=== PATIENT | male | born 2000 | race Caucasian/White ===

== ENCOUNTER 2020-05-24 14:23 | Emergency (ER) | payer OTHER, SELFPAY ==
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
[2020-05-24 14:27] VITALS: BP 140/65; PULSE 61; RESP 16; TEMP 36.7; O2SAT 98
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
[2020-05-24] MEDS: IBUPROFEN 600 MG TABLET PO (16:20)
[2020-05-24 16:41] VITALS: BP 116/72; PULSE 87; RESP 16; O2SAT 100
== END 2020-05-24 16:41 | disposition home or self-care (01) ==
PROVIDERS: Emergency Provider Emergency Medicine
DX: S16.1XXA Strain of muscle, fascia and tendon at neck level, initial encounter (principal); S39.92XA Unspecified injury of lower back, initial encounter; M47.812 Spondylosis without myelopathy or radiculopathy, cervical region; Q76.49 Other congenital malformations of spine, not associated with scoliosis; V49.40XA Driver injured in collision with unspecified motor vehicles in traffic accident, initial encounter
CPT/HCPCS: 71046; 72110; 72125; 99284; A9270

== ENCOUNTER 2020-07-03 18:38 | Emergency (ER) | payer OTHER, SELFPAY ==
--- NOTE | ~2020-07-03 | XR_ITS ---
EXAMINATION: XR lumbar spine 2-3V DATE: 07/03/2020 19:42 INDICATION: Low back pain. Weightlifting injury. TECHNIQUE: 3 views of lumbar spine were obtained. COMPARISON: Lumbar spine radiograph 05/24/2020, CT abdomen and pelvis 11/09/2012 FINDINGS: Bone alignment is normal. Vertebral body heights and intervertebral disc heights are normal . Again seen is a Schmorl's node of superior endplate of L4. The facet joints are unremarkable. IMPRESSION: 1. No specific etiology for the patient's symptoms. Reviewed, dictated and finalized at location A.
[2020-07-03 18:53] VITALS: BP 132/67; PULSE 59; RESP 18; TEMP 36.3; O2SAT 100
--- NOTE | 2020-07-03 19:39 | ED.GENADULT ---
HPI - General Adult General Chief complaint: Back Pain/Injury Stated complaint: lower back pain/needs clearance Time Seen by Provider: 07/03/20 18:48 Source: patient History of Present Illness HPI narrative: Patient is a 20 y/o male complaining of low back pain since yesterday. He describes his pain as sharp and rates it as 4/10. He states that bending aggravates his pain. There is no pain radiation. He has no difficulty with walking, urinating or defecating. He states that he was weight lifting 2 days prior to onset of back and thought it may be related. Related Data Home Medications Medication Instructions Recorded Confirmed No Home Medications 07/03/20 07/03/20 Allergies Allergy/AdvReac Type Severity Reaction Status Date / Time No Known Allergies Allergy Verified 07/03/20 18:57 Review of Systems Constitutional: Constitutional: Denies chills, Denies fever(s), Denies headache(s) and Denies weakness Eyes: Eyes: Denies blurry vision ENT: Denies headache(s) and Denies neck pain Cardiovascular: Cardiovascular: Denies chest pain and Denies dyspnea Respiratory: Respiratory: Denies cough and Denies dyspnea Gastrointestinal: Gastrointestinal: Denies abdominal pain, Denies diarrhea, Denies nausea and Denies vomiting Genitourinary: Genitourinary: Denies hematuria and Denies dysuria Musculoskeletal: Musculoskeletal: Reports back pain and Denies neck pain Neurologic: Denies headache(s) and Denies weakness PMFSH Past Medical History Medical History Patient denies significant medical history Social History Social History Smoking status: Never smoker Gender identity (if verbalized by the patient): Male Exam Const: General: no acute distress and well developed Orientation/consciousness: oriented to person, oriented to place, oriented to time and patient oriented x3 HENMT: Head: normocephalic Ears: external ears normal General nose exam: Normal external nose present Eyes: General: appearance normal, both eyes and all related structures Conjunctivae: conjunctivae normal Neck: Neck: normal visual inspection and full ROM Chest: Chest palpation & inspection: normal inspection of the chest and no tenderness Resp: Effort & Inspection: normal respiratory effort Auscultation: clear to auscultation bilaterally Cardio: Rate: regular rate Rhythm: regular rhythm GI: GI Palp: No abdominal tenderness and Yes Soft to palpation Back/Spine/Pelvis: Thoracic/Lumbar Spine: thoraco-lumbar ROM normal and No paraspinal muscle tenderness Skin: General skin exam: normal color and turgor normal Neuro: General: oriented to person, oriented to place, oriented to time and patient oriented x3 Cognition (Neuro): normal cognition Extrem: General: normal to inspection, full ROM and no pedal edema Psych: Appearance: grossly normal Mental Status: mental status grossly normal Affect: normal affect Course Vital Signs Vital signs: Vital Signs Temperature 36.3 C L 07/03/20 18:53 Pulse Rate 59 L 07/03/20 18:53 Respiratory Rate 18 07/03/20 18:53 Blood Pressure 132/67 07/03/20 18:53 Pulse Oximetry 100 07/03/20 18:53 Temperature 36.6 C 07/03/20 20:47 Pulse Rate 66 07/03/20 20:47 Respiratory Rate 18 07/03/20 20:47 Blood Pressure 122/77 07/03/20 20:47 Pulse Oximetry 100 07/03/20 20:47 Medical Decision Making Vital Signs Vital Signs: Vital Signs Temperature 36.3 C L 07/03/20 18:53 Pulse Rate 59 L 07/03/20 18:53 Respiratory Rate 18 07/03/20 18:53 Blood Pressure 132/67 07/03/20 18:53 Pulse Oximetry 100 07/03/20 18:53 Temperature 36.6 C 07/03/20 20:47 Pulse Rate 66 07/03/20 20:47 Respiratory Rate 18 07/03/20 20:47 Blood Pressure 122/77 07/03/20 20:47 Pulse Oximetry 100 07/03/20 20:47 Discharge Plan Discharge Clinical Impression: Back pain
[2020-07-03 20:47] VITALS: BP 122/77; PULSE 66; RESP 18; TEMP 36.6; O2SAT 100
== END 2020-07-03 21:05 | disposition home or self-care (01) ==
PROVIDERS: Emergency Provider Emergency Medicine
DX: M54.5 Low back pain (principal)
CPT/HCPCS: 72100; 99283

== ENCOUNTER 2020-08-05 15:22 | Emergency (ER) | payer OTHER, SELFPAY ==
[2020-08-05 15:35] VITALS: BP 129/80; PULSE 72; RESP 20; TEMP 36.6; O2SAT 99
--- NOTE | 2020-08-05 15:57 | ED.UPPEXIN ---
HPI - Extremity Injury (Upper) General Chief Complaint: Extremity Injury, Upper Stated Complaint: shoulder pain/injury 2 wks ago Time Seen by Provider: 08/05/20 15:43 Source: patient Mode of arrival: ambulatory Limitations: no limitations History of Present Illness HPI narrative: Patient is a 20 year old male who presents complaining right shoulder pain. Patient is here requesting return to work note that states he may lift 50 lbs. Patient reports calling off of work on Thursday and now needs a note to return. Patient reports that he has currently been weightlifting and feels maybe he strained shoulder muscles at that time. Patient denies chest pain, back pain or neck pain. Patient denies all other complaints. Patient is adamant about work note. MD complaint: injury to: right Related Data Allergies Allergy/AdvReac Type Severity Reaction Status Date / Time No Known Allergies Allergy Verified 08/05/20 15:37 Review of Systems Review of Systems: Narrative: CONSTITUTIONAL: Denies fever, chills, or sweats. EYES: Denies visual changes, redness, or discharge. ENT: Denies rhinorrhea, congestion, sore throat, or otalgia. CARDIOVASCULAR: Denies chest pain, palpitations, or edema. RESPIRATORY: Denies cough or dyspnea. GASTROINTESTINAL: Denies abdominal pain, nausea, vomiting, or diarrhea. GENITOURINARY: Denies dysuria or hematuria. SKIN: Denies rash or itching. MUSCULOSKELETAL: Reports right shoulder pain NEUROLOGIC: Denies headache, numbness, dizziness, or weakness. PSYCHIATRIC: Denies anxiety or depression. PMFSH Past Medical History Medical History Patient denies significant medical history Social History Social History (Updated 08/05/20 @ 16:08 by FREDERIC Carreon) Smoking status: Never smoker Alcohol intake: current Alcohol use details: Occasional Substance use: never Gender identity (if verbalized by the patient): Male Comments At the time of signature, I have reviewed and agree with nursing past medical, surgical, social, and family history unless otherwise noted. Please see nursing chart for further information. There is no relevant family history pertinent to the presenting complaint. Exam Narrative: Exam Narrative: GENERAL: Well-appearing, well-nourished, and in no acute distress. HEAD: Normocephalic, atraumatic. EYES: EOMI. No redness or drainage. Conjunctiva are normal. ENT: Mucous membranes pink and moist. CHEST: No respiratory distress. HEART: Regular rate and rhythm. EXTREMITIES: Normal range of motion. No edema. SKIN: Warm, dry, no rash. NEURO: No focal deficits. Alert and oriented x3. Gait steady. PSYCH: Normal affect. No signs of depression or anxiety. Course Reevaluation(s) Reevaluation #1: Offered patient x-ray of shoulder to see if there are any osseous abnormalities, patient declines. Patient states hehas musculoskeletal pain and he feels he is able to lift at work but continues in need to work note. Discussed with patient that we are unable to provide return to work note and that would have to be done by [employer] or workman's comp physician with name provided by [employer]. Patient requests a note stating that he was seen in the emergency department. Discussed with patient that we are able to provide that at this time as well as muscle relaxants if needed. Patient instructed on rest, ice, use of NSAIDs and muscle relaxants. Vital Signs Vital signs: Vital Signs Temperature 36.6 C 08/05/20 15:35 Pulse Rate 72 08/05/20 15:35 Respiratory Rate 20 08/05/20 15:35 Blood Pressure 129/80 08/05/20 15:35 Pulse Oximetry 99 08/05/20 15:35 Temperature 36.6 C 08/05/20 15:35 Pulse Rate 72 08/05/20 15:35 Respiratory Rate 20 08/05/20 15:35 Blood Pressure 129/80 08/05/20 15:35 Pulse Oximetry 99 08/05/20 15:35 Reviewed MDM - Extremity Injury (Upper) MDM Narrative Medical decision making narrative: Patient
[2020-08-05 16:40] VITALS: BP 120/72; PULSE 65; RESP 18; TEMP 37.1; O2SAT 99
== END 2020-08-05 16:40 | disposition home or self-care (01) ==
PROVIDERS: Emergency Provider Nurse Practitioner
DX: S46.911A Strain of unspecified muscle, fascia and tendon at shoulder and upper arm level, right arm, initial encounter (principal); X50.0XXA Overexertion from strenuous movement or load, initial encounter; Y93.B3 Activity, free weights
CPT/HCPCS: 99283

== ENCOUNTER 2021-02-07 10:53 | Emergency (ER) | payer OTHER, SELFPAY ==
[2021-02-07 10:57] VITALS: BP 128/69; PULSE 84; RESP 16; TEMP 36.7; O2SAT 100
[2021-02-07 11:06] VITALS: BP 128/78; PULSE 80; RESP 18; TEMP 36.7; O2SAT 99
--- NOTE | 2021-02-07 11:31 | ED.URI ---
HPI - URI/Sore Throat General Chief Complaint: Upper Respiratory Infection Stated Complaint: Cold sweats, dry cough, congestion Time Seen by Provider: 02/07/21 11:00 Source: patient History of Present Illness HPI Narrative: Patient presents with cough, congestion, sore throat. Reports subjective fevers at home. He also reports diffuse body aches. Reports symptoms been present for the past 6 days and not appear to be recovering despite [id number] therapies so he came to the ER for evaluation. Denies any nausea or vomiting he denies any chest pain or shortness of breath denies any diarrhea Related Data Allergies Allergy/AdvReac Type Severity Reaction Status Date / Time No Known Allergies Allergy Verified 02/07/21 11:05 Review of Systems Review of Systems: CONSTITUTIONAL: Denies fever, chills, or sweats. EYES: Denies visual changes, redness, or discharge. ENT: Reports sore throat, congestion CARDIOVASCULAR: Denies chest pain, palpitations, or edema. RESPIRATORY: Denies dyspnea. GASTROINTESTINAL: Denies abdominal pain, nausea, vomiting, or diarrhea. GENITOURINARY: Denies dysuria or hematuria. SKIN: Denies rash or itching. MUSCULOSKELETAL: Denies back pain, joint pain, or myalgia. NEUROLOGIC: Denies headache, numbness, dizziness, or weakness. PSYCHIATRIC: Denies anxiety or depression. All systems reviewed & are unremarkable except as noted in HPI and below PMFSH Past Medical History Medical History Patient denies significant medical history Social History Social History Smoking status: Never smoker Alcohol intake: current Alcohol use details: Occasional Substance use: never Gender identity (if verbalized by the patient): Male Exam Narrative: GENERAL: Well-appearing, well-nourished, and in no acute distress. HEAD: Normocephalic, atraumatic. EYES: PERRLA and EOMI. ENT: Nares clear, no rhinorrhea or epistaxis. Mucous membranes moist. Mild erythema and edema in the posterior pharynx no uvular deviation no airway compromise NECK: Supple. No masses. No JVD CHEST: Clear to auscultation. No respiratory distress. No wheezes rales or rhonchi HEART: Regular rate and rhythm. No murmur heard. Normal peripheral pulses. EXTREMITIES: Normal range of motion. No edema. SKIN: Warm, dry, no rash. NEURO: No focal deficits. Alert and oriented x3. PSYCH: Normal mood and affect. Course Vital Signs Vital signs: Vital Signs Temperature 36.7 C 02/07/21 10:57 Pulse Rate 84 02/07/21 10:57 Respiratory Rate 16 02/07/21 10:57 Blood Pressure 128/69 02/07/21 10:57 Pulse Oximetry 100 02/07/21 10:57 Temperature 36.7 C 02/07/21 11:06 Pulse Rate 80 02/07/21 11:06 Respiratory Rate 18 02/07/21 11:06 Blood Pressure 128/78 02/07/21 11:06 Pulse Oximetry 99 02/07/21 11:06 MDM - URI/Sore Throat MDM Narrative Medical decision making narrative: H&P as above, vss, pt looks clinically well, exam reassuring, labs with bedside influenza A positive, additional labs/img considered, symptomatic relief available as needed, on reevaluation pt continues to looks clinically well. Suspect influenza, dns bacterial pneumonia, severe sepsis, severe dehydration. plan to tx/monitor as op w/ pcm f/u findings/plan discussed with pt, pt agree/comfortable with plan, return precautions given. Patient was previously tested at an urgent care for his rapid Covid his PCR is pending patient was offered strep swab however given his influenza a was positive that is the likely etiology for his symptoms. Lab Data Labs: Influenza A Screen Positive Reference Range: Negative Influenza B Screen Negative Reference Range: Negative Discharge Plan Discharge Clinical Impression: Influenza A Pat
== END 2021-02-07 11:48 | disposition home or self-care (01) ==
LOC: ANHED 11:44
PROVIDERS: Emergency Provider Emergency Medicine
DX: J10.1 Influenza due to other identified influenza virus with other respiratory manifestations (principal)
CPT/HCPCS: 87804; 99283

== ENCOUNTER 2021-03-11 12:42 | Emergency (ER) | payer OTHER, SELFPAY ==
[2021-03-11 12:57] VITALS: BP 139/82; PULSE 92; RESP 20; TEMP 37.3; O2SAT 98
[2021-03-11 13:50] VITALS: BP 142/68; PULSE 88; RESP 18; O2SAT 100
--- NOTE | 2021-03-11 15:00 | ED.GENADULT ---
HPI - General Adult General Chief complaint: Unspecified Stated complaint: chills/sweats/headache Time Seen by Provider: 03/11/21 13:51 Source: patient Mode of arrival: ambulatory Limitations: no limitations History of Present Illness HPI narrative: This is a 21-year-old male that presents to the emergency department for cold symptoms present x2 days. Reports cough, myalgias, headache, and chills. Denies fever, chest pain, shortness of breath, vomiting, or weakness. Related Data Allergies Allergy/AdvReac Type Severity Reaction Status Date / Time No Known Allergies Allergy Verified 02/07/21 11:05 Review of Systems Review of Systems: CONSTITUTIONAL: Reports chills. Denies fever ENT: Denies rhinorrhea, congestion, sore throat, or otalgia. CARDIOVASCULAR: Denies chest pain RESPIRATORY: Reports cough. Denies dyspnea. MUSCULOSKELETAL: Reports myalgia. NEUROLOGIC: Reports headache. Denies numbness, or weakness. All systems reviewed & are unremarkable except as noted in HPI and below PMFSH Past Medical History Medical History Patient denies significant medical history Social History Social History Smoking status: Never smoker Alcohol intake: current Alcohol use details: Occasional Substance use: never Gender identity (if verbalized by the patient): Male Exam Narrative: GENERAL: Well-appearing, well-nourished, and in no acute distress. HEAD: Normocephalic, atraumatic. EYES: PERRLA and EOMI. ENT: Nares clear, no rhinorrhea or epistaxis. Mucous membranes moist. Oropharynx without tonsillar hypertrophy exudate or other lesions. Bilateral TMs pearly viera non-bulging NECK: Supple. No adenopathy or masses. CHEST: Clear to auscultation. No respiratory distress. No wheezes rales or rhonchi HEART: Regular rate and rhythm. No murmur heard. Normal peripheral pulses. EXTREMITIES: Normal range of motion. No edema. Strength equal in bilateral upper and lower extremities (5/5) SKIN: Warm, dry, no rash. NEURO: No focal deficits. Alert and oriented x3. Cranial nerves II through XII grossly intact PSYCH: Normal mood and affect Course Vital Signs Vital signs: Vital Signs Temperature 99.2 F 01/10/22 12:57 Pulse Rate 92 03/11/21 12:57 Respiratory Rate 20 03/11/21 12:57 Blood Pressure 139/82 03/11/21 12:57 Pulse Oximetry 98 03/11/21 12:57 Temperature 99.2 F 03/11/21 12:57 Pulse Rate 88 03/11/21 13:50 Respiratory Rate 18 03/11/21 13:50 Blood Pressure 142/68 H 03/11/21 13:50 Pulse Oximetry 100 03/11/21 13:50 Medical Decision Making MDM Narrative Medical decision making narrative: Patient presents to the emergency department for cold symptoms present x2 days. He is afebrile and nontoxic-appearing. He is neurologically intact. Oxygen saturation is normal on room air. Lungs are clear on exam. Strep screen and influenza screen negative. SARS-CoV-2 was sent. Patient is not vaccinated. Patient was instructed on continued care of viral infection. He is to follow up with primary care doctor. He was given warnings to return to the ER Vital Signs Vital Signs: Vital Signs Temperature 99.2 F 03/11/21 12:57 Pulse Rate 92 03/11/21 12:57 Respiratory Rate 20 03/11/21 12:57 Blood Pressure 139/82 03/11/21 12:57 Pulse Oximetry 98 03/11/21 12:57 Temperature 99.2 F 03/11/21 12:57 Pulse Rate 88 03/11/21 13:50 Respiratory Rate 18 03/11/21 13:50 Blood Pressure 142/68 H 03/11/21 13:50 Pulse Oximetry 100 03/11/21 13:50 Lab Data Lab results reviewed: Yes I reviewed the patient's lab results. Labs: Lab Results 03/11/21 Range/Units 14:37 SARS-CoV-2 RNA (RT-PCR) Pending Influenza A Screen Negative Reference Range: Negative Influenza B Screen Negative
[2021-03-12 21:02] LABS: SARS-CoV-2 RNA PCR Positive
== END 2021-03-11 15:23 | disposition home or self-care (01) ==
PROVIDERS: Physician Assistant; Emergency Provider Emergency Medicine
DX: U07.1 COVID-19 (principal)
CPT/HCPCS: 87081; 87804; 87880; 99283; C9803; U0003; U0005

== ENCOUNTER 2021-04-15 17:35 | Emergency (ER) | payer OTHER, SELFPAY ==
--- NOTE | 2021-04-15 17:43 | ED.GENADULT ---
HPI - General Adult General Chief complaint: Upper Respiratory Infection Stated complaint: headache Time Seen by Provider: 04/15/21 17:45 Source: patient Mode of arrival: ambulatory Limitations: no limitations History of Present Illness HPI narrative: 21-year-old male presented for complaint of nausea and vomiting, onset 4 days ago. He states it lasted about 2 days and lost about 10 pounds. He denies any associated abdominal pain, diarrhea, hematochezia, hematemesis. Currently states he is able to tolerate p.o. intake and sx are improving. Denies chest pain, palpitations, shortness of breath, cough, fever or chills. He states he needs a return to work note. Related Data Home Medications Medication Instructions Recorded Confirmed No Home Medications 04/15/21 04/15/21 Allergies Allergy/AdvReac Type Severity Reaction Status Date / Time No Known Allergies Allergy Verified 04/15/21 17:53 Review of Systems Review of Systems: CONSTITUTIONAL: Denies body aches, fever, chills EYES: Denies visual changes ENT: Denies rhinorrhea, congestion CARDIOVASCULAR: Denies chest pain, palpitations, or edema. RESPIRATORY: Denies cough or dyspnea. GASTROINTESTINAL: Endorses nausea, vomiting denies abdominal pain, diarrhea, hematochezia, melena, hematemesis GENITOURINARY: Denies dysuria, hematuria, or CVA tenderness. SKIN: Denies rash, itching, or wounds. MUSCULOSKELETAL: Denies back pain, joint pain, or myalgia. NEUROLOGIC: Denies headache, numbness, tingling, or weakness. PSYCH: Denies mood change All systems reviewed & are unremarkable except as noted in HPI and below PMFSH Past Medical History Medical History Patient denies significant medical history Social History Social History Smoking status: Never smoker Alcohol intake: current Alcohol use details: Occasional Substance use: never Gender identity (if verbalized by the patient): Male Comments At time of signature, I have reviewed and agree with nursing past medical, surgical, social and family history unless otherwise noted. Please see nursing chart for further information. There is no relevant family history pertinent to the presenting complaint Exam Narrative: GENERAL: Well-appearing, well-nourished, and in no acute distress. HEAD: Normocephalic, atraumatic. EYES: EOMI. Conjunctivae normal. ENT: Mucous membranes pink and moist. NECK: Normal AROM. Supple. No lymphadenopathy. CHEST: No respiratory distress. Clear to auscultation. HEART: Regular rate and rhythm. No murmur appreciated. Normal peripheral pulses. ABDOMEN: Tender abdomen: No guarding, rebound tenderness, asymmetry; abd soft, nondistended, normal active bowel sounds. MUSCULOSKELETAL: No bony tenderness. EXTREMITIES: Normal range of motion. No edema. SKIN: Warm, dry, no rash. Capillary refill normal. Normal skin turgor. NEURO: No focal deficits. Alert and oriented x3. Gait steady. PSYCH: Normal affect. Course Course Emergency Course: Patient is aware of diagnosis, understands and agrees to treatment plan. Anticipatory guidance given. Patient agrees to follow-up as directed and is aware of reasons to seek care at the emergency department. Portions of this record may have been created with voice recognition software Level of Care: Express Care Visit Medical Decision Making MDM Narrative Medical decision making narrative: Consider gastroenteritis, GERD, bowel obstruction or perforation, appendicitis, hernia, mesenteric ischemia, pancreatitis, peritonitis Discharge Plan Discharge Clinical Impression: Nausea & vomiting Qualifiers: Vomiting type: unspecified Qualified Code(s): R11.2 - Nausea with vomiting, unspecified Patient Disposition: Home, Self-Care Condition: Stable Instructions: Antibiotic Form, Diet for Stomach Ulcers and Gastritis (ED) Additional In
[2021-04-15 17:46] VITALS: BP 133/79; PULSE 90; RESP 18; TEMP 36.6; O2SAT 99
== END 2021-04-15 17:59 | disposition home or self-care (01) ==
PROVIDERS: Emergency Provider Nurse Practitioner Family
DX: R11.2 Nausea with vomiting, unspecified (principal); F17.290 Nicotine dependence, other tobacco product, uncomplicated; Z86.16 Personal history of COVID-19
CPT/HCPCS: 99211; G0463